=== PATIENT | female | born 1970 | race Caucasian/White ===

== ENCOUNTER → 2019-06-10 14:11 | Outpatient (CLI) | payer OTHER, SELFPAY ==
--- NOTE | ~2019-06-10 | MM_ITS ---
EXAMINATION: MM screening [facility] w solo HISTORY: Screening mammogram TECHNIQUE: Craniocaudal and mediolateral oblique 3-D tomosynthesis images were obtained and synthetic 2-D images were generated. CAD analysis was submitted and interpreted. COMPARISON: No prior mammogram is available for comparison at this institution. BREAST PARENCHYMAL COMPOSITION: 04/24/2016 bilateral diagnostic digital mammogram and bilateral compl ete breast ultrasound 03/22/2016 bilateral digital screening mammogram FINDINGS: There are stable circumscribed low-density masses in the right breast which are unchanged o r smaller since 04/24/2016. There is no evidence of suspicious mass, calcification, or architectural distortion to suggest malignancy in either breast. There has been no suspicious interval change. IMPRESSION: 1. No mammographic evidence of malignancy. 2. Recommend routine screening mammography in one year. BI-RADS Category 2: Benign finding(s). Reviewed, dictated and finalized at location A. IGERATION OPERATOR
== END ==
PROVIDERS: PCP Internal Medicine
DX: Z12.31 Encounter for screening mammogram for malignant neoplasm of breast (principal)
CPT/HCPCS: 77063; 77067

== ENCOUNTER → 2020-12-21 14:52 | Outpatient (CLI) | payer OTHER, SELFPAY ==
--- NOTE | ~2020-12-21 | XR_ITS ---
EXAMINATION: XR lumbar spine 2-3V DATE: 12/21/2020 15:15 INDICATION: Paresthesias of the skin, low back pressure TECHNIQUE: Anteroposterior and lateral views of the lumbar spine, and cone-down lateral view of the l umbosacral junction were obtained. COMPARISON: None. FINDINGS: There is no fracture, dislocation, or subluxation. There is mild loss of intervertebral dis c space height at L5-S1. The vertebral body heights are maintained. Small degenerative osteophytes pr oject from the anterior endplates of multiple vertebral bodies. Surgical clips in the right upper arsh drant are likely from prior cholecystectomy. IMPRESSION: 1. Mild lumbar spondylosis without acute findings. Reviewed, dictated and finalized at location B.
== END ==
PROVIDERS: PCP Internal Medicine; Visit Provider Internal Medicine
DX: R20.2 Paresthesia of skin (principal); M47.896 Other spondylosis, lumbar region
CPT/HCPCS: 72100

== ENCOUNTER → 2021-01-05 14:55 | Outpatient (CLI) | payer OTHER, SELFPAY ==
--- NOTE | ~2021-01-05 | MM_ITS ---
EXAMINATION: MM screening [facility] BI w solo HISTORY: Screening mammogram TECHNIQUE: Craniocaudal and mediolateral oblique 3-D tomosynthesis images were obtained and synthetic 2-D images were generated. CAD analysis was submitted and interpreted. COMPARISON: 06/10/2019, 04/24/2016, 03/22/2016 BREAST PARENCHYMAL COMPOSITION: There are scattered areas of fibroglandular density. FINDINGS: There is no evidence of suspicious mass, calcification, or architectural distortion to sugg est malignancy in either breast. There has been no suspicious interval change. IMPRESSION: 1. No mammographic evidence of malignancy. 2. Recommend routine screening mammography in one year. BI-RADS Category 1: Negative Reviewed, dictated and finalized at location A.
== END ==
PROVIDERS: PCP Internal Medicine; Visit Provider Obstetrics & Gynecology
DX: Z12.31 Encounter for screening mammogram for malignant neoplasm of breast (principal)
CPT/HCPCS: 77063; 77067

== ENCOUNTER → 2022-06-18 15:46 | Outpatient (CLI) | payer OTHER, SELFPAY ==
--- NOTE | ~2022-06-18 | MM_ITS ---
EXAMINATION: MM screening [facility] BI w solo HISTORY: Screening mammogram TECHNIQUE: Craniocaudal and mediolateral oblique 3-D tomosynthesis images were obtained and synthetic 2-D images were generated. CAD analysis was submitted and interpreted. COMPARISON: 01/05/2021, 06/10/2019 bilateral screening mammogram examinations BREAST PARENCHYMAL COMPOSITION: There are scattered areas of fibroglandular density. FINDINGS: Biopsy marker on the left; history of prior benign left breast biopsy. There is no evidence of suspicious mass, calcification, or architectural distortion to suggest malignancy in either breas t. There has been no suspicious interval change. IMPRESSION: 1. No mammographic evidence of malignancy. 2. Recommend routine screening mammography in one year. BI-RADS Category 1: Negative Reviewed, dictated and finalized at location A. ICS TUTOR
== END ==
PROVIDERS: PCP Internal Medicine; Visit Provider Internal Medicine
DX: Z12.31 Encounter for screening mammogram for malignant neoplasm of breast (principal)
CPT/HCPCS: 77063; 77067

== ENCOUNTER 2024-01-27 15:14 | Outpatient (CLI) | payer OTHER, SELFPAY ==
--- NOTE | ~2024-01-27 | MM_ITS ---
EXAMINATION: MM screening [facility] BI w solo HISTORY: Screening mammogram TECHNIQUE: Craniocaudal and mediolateral oblique 3-D tomosynthesis images were obtained and synthetic 2-D images were generated. CAD analysis was submitted and interpreted. COMPARISON: 06/18/2022, 01/05/2021, 06/10/2019 BREAST PARENCHYMAL COMPOSITION:Not Dense. There are scattered areas of fibroglandular density. FINDINGS: No suspicious mass, calcification, or architectural distortion are identified in either vanessa ast to suggest malignancy. There has been no suspicious interval change. IMPRESSION: No mammographic evidence of malignancy. Recommend routine screening mammography in one year. BI-RADS Category 1: Negative Reviewed, dictated and finalized at location .
== END 2024-01-27 15:15 | disposition home or self-care (01) ==
PROVIDERS: PCP Internal Medicine; Visit Provider Obstetrics & Gynecology
DX: Z12.31 Encounter for screening mammogram for malignant neoplasm of breast (principal)
CPT/HCPCS: 77063; 77067

== ENCOUNTER 2025-01-28 14:59 | Outpatient (CLI) | payer OTHER, SELFPAY ==
--- NOTE | ~2025-01-28 | MM_ITS ---
EXAMINATION: MM screening [facility] BI w solo HISTORY: Screening TECHNIQUE: Craniocaudal and mediolateral oblique 3-D tomosynthesis images were obtained and synthetic 2-D images were generated. CAD analysis was submitted and interpreted. COMPARISON: 06/18/2022 BREAST PARENCHYMAL COMPOSITION: Not Dense: The breasts are almost entirely fatty. FINDINGS: No suspicious calcifications or architectural distortion. Focal asymmetry in the upper-outer quadrant of left breast, posterior depth. IMPRESSION: 1. Focal asymmetry in the upper-outer quadrant of the left breast, posterior depth. The study is incomplete. A diagnostic mammogram and a diagnostic ultrasound are recommended. BI-RADS 0: Incomplete-Need additional imaging evaluation. Reviewed, dictated and finalized at location Q. IMPRESSION: 1. Focal asymmetry in the upper-outer quadrant of the left breast, posterior de pth. The study is incomplete. A diagnostic mammogram and a diagnostic ultrasoun d are recommended. BI-RADS 0: Incomplete-Need additional imaging evaluation.
--- OUTSIDE RECORDS SUMMARY | 2025-01-28 15:02 | XMS_ITS | Clinical Summary ---
Author Organization [facility] Address [address] [place] [address] Care Team Providers Care Chinchilla Machine Operator Name Role Phone Juan F Tanner MD Primary Care Provider [phone] Allergies No known active allergies Medications dilTIAZem XR (dilTIAZem CD) 240 mg 24 hr capsule Take 240 mg by mouth daily Active valACYclovir (VALTREX) 500 mg tablet Take 500 mg by mouth daily Active cyanocobalamin/folic acid (vitamin X83-voopz acid) 500-[address] under the tongue daily Active indapamide (LOZOL) 2.5 mg tablet Take 2.5 mg by mouth nightly Active escitalopram (LEXAPRO) 10 mg tablet Take 10 mg by mouth nightly Active rosuvastatin (CRESTOR) 40 mg tablet Take 1 tablet (40 mg total) by mouth daily 30 tablet 11 2 Active coenzyme Q10 100 mg capsule Take 1 capsule (100 mg total) by mouth daily 30 capsule 11 2 Active ezetimibe (ZETIA) 10 mg tablet Take 1 tablet (10 mg total) by mouth daily 30 tablet 11 2 Active fenofibrate nanocrystallized (TRICOR) 145 mg tablet Take 1 tablet (145 mg total) by mouth daily 30 tablet 11 2 Active Active Problems Problem Noted Date Diagnosed Date Prediabetes 03/01/2022 Acute pancreatitis, unspecif ied complication status, unspecified pancreatitis type 02/28/2022 Anxiety disorder 02/28/2022 Hyperlipidemia 02/28/2022 Obesity with body mass index greater than 30 Benign essential hypertension 03/06/2016 Surgical History Surgery Date Site/Laterality Comments BREAST BIOPSY 06/25/2016 Left Social History Tobacco Use Types Packs/Day Years Used Date Smoking Tobacco: Never Passive Smoke Exposure: Never Smokeless Tobacco: Never Tobacco Cessation:Counseling Given: No Comments Unknown Sex and Gender Information Value Date Recorded Sex Assigned at Not on file Legal Sex Female 9:01 PM GLOBE TESTER Gender Identity Not on file Sexual Orientation Not on file Obstetrics History Last Filed Vital Signs Vital Sign Reading Time Taken Comments Blood Pressure 134/89 03/01/2022 4:13 PM CDT Pulse 92 03/01/2022 4:13 PM CDT Temperature 37.7 C (99.9 F) 03/01/2022 4:13 PM CDT Respiratory Rate 18 03/01/2022 4:13 PM CDT Oxygen Saturation 97% 03/01/2022 4:13 PM CDT Inhaled Oxygen Concentration - - Weight 89.2 kg (196 lb 9.6 oz) 02/28/2022 8:51 P M CDT Height 157.5 cm (5' 2) 02/28/2022 5:50 AM CDT Body Mass Index 35.96 02/28/2022 5:50 AM CDT Plan of Treatment Health Maintenance Due Date Last Done Comments Cervical Cancer Screening 1969 Colon Cancer Screening-Colonoscopy 1969 Depression Screening 1969 Hepatitis C Screening 1969 Hepatitis B Screening 1987 Regular Well Visit/Exam 18-64 1987 Zoster Vaccine (1 of 2) 2019 Breast Cancer Screening-Mammogram 05/08/2019 05/08/2018, 03/22/2017 Covid-19 Vaccine ( season) 2025 04/11/2021, 07/23/2020, 06/25/2020 Influenza Vaccine (#1) 2025 , 01/13/2020, 02/14/2016, Additional history exists DTaP/Tdap/Td Vaccine (2 - Td or Tdap) 12/04/2025 12/05/2015 Pneumococcal vaccine <65 Aged Out No longer eligible based on patient's age to complete this topic Procedures Procedure Name Priority Date/Time Associated Diagnosis Comments DIAGNOSTIC MAMMOGRAM BILATERAL W BAL Routine 05/08/2018 8:16 AM GLOBE TESTER from Last 3 Months or Most Recently Relevant to Health Maintenance Results * Diagnostic Mammogram Bilateral W Bal (05/08/2018 8:16 AM GLOBE TESTER) Anatomical Region Laterality Modality Breast Bilateral Mammography 05/08/2018 8:16 AM GLOBE TESTER Impressions 05/08/2018 9:08 AM GLOBE TESTER OVERALL STUDY BIRADS: 2 BENIGN No evidence of malignancy. Benign clustered cysts at 6:30 in the right breast. A 1 year screening mammogram is recommended. The patient was notified of the results. Electronically signed by: Dr. Jayy Ro M.D. nh/:05/08/2018 09:06:36 Whipped Topping Mixer: Carmenza NAIR(Vincenzo)(M), [facility] letter sent: Normal Exam Reading location: [facility] OVERALL STUDY BIRADS: 2 Benign [EOD] Narrative 05/08/2018 9:08 AM GLOBE TESTER - MG - US BILATERAL DIGITAL DIAGNOSTIC MAMMOGRAM 3D/2D AND TARGETED RIGHT ULTRASOUND WITH MEDIOLATERAL OBLIQUE CRANIOCAUDAL: 05/08/2018 The study was acquired using full field digital technology and interpreted from soft copy. 2D digital mammographic views, as well as 3D digital tomosynthesis were performed in the CC and MLO projections. CLINICAL: 48-year-old woman here for short interval follow-up of probably benign clustered cysts in the right breast, and annual mammography of the left breast. COMPARISONS: Comparison is made to exams dated: 10/08/2017 mammogram and ultrasound, 03/22/2017 mammogram - [facility], and 03/22/2016 mammogram - [facility]. BREAST TISSUE: There are scattered areas of fibroglandular density. MAMMOGRAPHIC FINDINGS: Unchanged small benign mass in the medial right breast. There is no new mass, suspicious calcification or architectural distortion in either breast. Unchanged post biopsy clip in the left breast. There has been no suspicious change. ULTRASOUND FINDINGS: Targeted right breast ultrasound at 6:30 o'clock 2.5 cm from the nipple redemonstrated clustered cysts measuring 7 x 2 x 2 mm, previously measuring 7 x 3 x 2 mm on 10/08/2017. Procedure Note Provider, MD Martha - 09/28/2020 - MG - US BILATERAL DIGITAL DIAGNOSTIC MAMMOGRAM 3D/2D AND TARGETED RIGHT ULTRASOUNDWITH MEDIOLATERAL OBLIQUE CRANIOCAUDAL: 05/08/2018 The study was acquired using full field digital technology and interpretedfrom soft copy. 2D digital mammographic views, as well as 3D digital tomosynthesis were performed in the CC and MLO projections. CLINICAL: 48-year-old woman here for short interval follow-up of probably benign clustered cysts in the right breast, and annual mammography of theleft breast. COMPARISONS: Comparison is made to exams dated: 10/08/2017 mammogram and ultrasound, 03/22/2017 mammogram - [facility], and03/22/2016 mammogram - [facility] [place]. BREAST TISSUE: There are scattered areas of fibroglandular density. MAMMOGRAPHIC FINDINGS: Unchanged small benign mass in the medial rightbreast. There is no new mass, suspicious calcification or architectural distortionin either breast. Unchanged post biopsy clip in the left breast. There hasbeen no suspicious change. ULTRASOUND FINDINGS: Targeted right breast ultrasound at 6:30 o'clock 2.5 cm from the nipple redemonstrated clustered cysts measuring 7 x 2 x 2 mm, previously measuring 7 x 3 x 2 mm on 10/08/2017. IMPRESSION: OVERALL STUDY BIRADS: 2 BENIGN No evidence of malignancy. Benign clustered cysts at 6:30 in the rightbreast. A 1 year screening mammogram is recommended. The patient was notified of the results. Electronically signed by: Dr. Jayy Ro M.D. tn/:05/08/2018 09:06:36 Whipped Topping Mixer: Carmenza NAIR(R)(M), [facility] letter sent: Normal Exam Reading location: [facility] OVERALL STUDY BIRADS: 2 Benign [EOD] us Lamin Dang MD IMG MAMMO PROCEDURES Final Result from Last 3 Months or Most Recently Relevant to Health Maintenance Insurance [facility] [employer] [place] [employer] Address: [place] [address] [address] [place] [id number] [facility] [employer] [place] [employer] Address: [place] [address] Advance Directives For more information, please contact: [phone] * Full Code (Latest Code Status on File) Date Activated Date Inactivated Comments 02/28/2022 5:32 AM 03/01/2022 9:56 PM Care Teams Chinchilla Machine Operator Relationship Specialty Start Date End Date Juan F Tanner MD [address] [place] [address] [address] [place] [address] PCP - General Internal Medicine 02/28/22
== END 2025-01-28 15:00 | disposition home or self-care (01) ==
LOC: ANHFOHIMG 14:59
PROVIDERS: PCP Internal Medicine; Visit Provider Internal Medicine
DX: Z12.31 Encounter for screening mammogram for malignant neoplasm of breast (principal); R92.8 Other abnormal and inconclusive findings on diagnostic imaging of breast
CPT/HCPCS: 77063; 77067